=== PATIENT | female | born 1985 ===

== ENCOUNTER 2018-07-21 09:46 | Emergency (ER) | payer OTHER ==
[2018-07-21 10:04] VITALS: BMI 34.0
[2018-07-21 11:14] LABS: SQUAMOUS EPITHIAL 11 /hpf (0-5); URINE BACTERIA RARE (<OCC); URINE BILIRUBIN NEGATIVE (NEGATIVE); URINE BLOOD NEGATIVE (NEGATIVE); URINE CLARITY CLOUDY (Clear); URINE COLOR YELLOW (YELLOW); URINE GLUCOSE (UA) NEG (NEGATIVE); URINE LEUKOCYTE ESTERASE MOD Leu/uL (Negative); URINE PROTEIN 30 mg/dL (NEGATIVE); URINE UROBILINOGEN 0.2-1.0 mg/dL (0.2-1.0)
--- NOTE | 2018-07-21 11:25 | ED PDOC ---
HPI: General Adult Time Seen by Provider: 07/21/18 10:08 Chief Complaint (Nursing): GI Problem Chief Complaint (Provider): GI Problem History Per: Patient History/Exam Limitations: no limitations Onset/Duration Of Symptoms: Days Current Symptoms Are (Timing): Still Present Additional Complaint(s): 32 year old female with no past medical history who is presenting to the ED for evaluation of hyperemesis worsening over the past week. Patient is about 12 weeks by date with a LNMP of 04/24/18. She states that she had a positive home test weeks ago but has not followed up yet with wastewater analyst lab analyst. Pt. reports over past coupld weeks she has had persistent nausea and vomiting. Pt. reports multiple episodes of nonbloody nonbilious vomiting which has been more freqent this past week and now not tolerating po. Patient denies any vaginal bleeding or abdominal pain. Of note, patient has not insurance and thus has not seen an OBGYN; she will f/u with clinic. She is . PMD: none provided Past Medical History Reviewed: Historical Data, Nursing Documentation, Vital Signs Vital Signs: Last Vital Signs Temp 98.1 F 07/21/18 10:03 Pulse 71 07/21/18 10:03 Resp 20 07/21/18 10:03 BP 127/70 07/21/18 10:03 Pulse Ox 99 07/21/18 10:03 - Medical History PMH: No Chronic Diseases Denies: Chronic Kidney Disease - Surgical History Surgical History: No Surg Hx - Family History Family History: States: Unknown Family Hx - Social History Current smoker - smoking cessation education provided: No Alcohol: None Drugs: Denies - Home Medications Home Medications: Ambulatory Orders Medication Instructions Recorded Ondansetron ODT [Zofran ODT] 8 mg PO BID PRN #10 odt 07/21/18 - Allergies Allergies/Adverse Reactions: Allergies Allergy/AdvReac Type Severity Reaction Status Date / Time No Known Allergies Allergy Verified 07/21/18 10:21 Review of Systems ROS Statement: Except As Marked, All Systems Reviewed And Found Negative Gastrointestinal: Positive for: Nausea, Vomiting. Negative for: Abdominal Pain Genitourinary Female: Negative for: Vaginal Bleeding Physical Exam - Reviewed Nursing Documentation Reviewed: Yes Vital Signs Reviewed: Yes - Physical Exam Appears: Positive for: Non-toxic, No Acute Distress (but mildly dehydrated appearing ) Head Exam: Positive for: ATRAUMATIC, NORMAL INSPECTION, NORMOCEPHALIC Skin: Positive for: Normal Color, Warm, DRY Eye Exam: Positive for: EOMI, Normal appearance, PERRL ENT: Positive for: Normal ENT Inspection Neck: Positive for: Normal, Painless ROM Cardiovascular/Chest: Positive for: Regular Rate, Rhythm. Negative for: Murmur Respiratory: Positive for: Normal Breath Sounds. Negative for: Respiratory Distress Gastrointestinal/Abdominal: Positive for: Normal Exam, Soft. Negative for: Tenderness Back: Positive for: Normal Inspection Extremity: Positive for: Normal ROM. Negative for: Deformity, Swelling Neurologic/Psych: Positive for: Alert, Oriented. Negative for: Motor/Sensory Deficits - Laboratory Results Result Diagrams: 07/21/18 12:02 07/21/18 12:02 Lab Results: Urine Color Yellow (YELLOW) 07/21/18 11:00 Urine Clarity Cloudy (Clear) 07/21/18 11:00 Urine pH 5.0 (5.0-8.0) 07/21/18 11:00 Ur Specific Hunt 1.027 (1.003-1.030) 07/21/18 11:00 Urine Protein 30 mg/dL (NEGATIVE) 07/21/18 11:00 Urine Glucose (UA) Neg mg/dL (NEGATIVE) 07/21/18 11:00 Urine Ketones Negative mg/dL (NEGATIVE) 07/21/18 11:00 Urine Blood Negative (NEGATIVE) 07/21/18 11:00 Urine Nitrate Negative (NEGATIVE) 07/21/18 11:00 Urine Bilirubin Negative (NEGATIVE) 07/21/18 11:00 Urine Urobilinogen 0.2-1.0 mg/dL (0.2-1.0) 07/21/18 11:00 Ur Leukocyte Esterase Mod Amador/uL (Negative) 07/21/18 11:00 Urine RBC (Auto) 2 /hpf (0-3) 07/21/18 11:00 Urine Microscopic WBC 1 /hpf (0-5) 07/21/18 11:00 Ur Squamous Epith Cells 11 /hpf (0-5) H 07/21/18 11:00 Urine Bacteria Rare (<OCC) 07/21/18 11:00 - ECG O2 Sat by Pulse Oximetry: 99 (RA) Pulse Ox Interpretation: Normal Medical Decision Making Medical Decision Making: Time: 11:07 Plan: --Blood Type and Screen --Beta-HCG, Quantitiative --CMP --CBC --IV Fluids --Pepcid 20 mg IVP --Zofran 4 mg IVP --Urinalysis On reassessment, pt. feeling much better, no further n/v. Pt. is tolerating po. Serial abd. exams, abd. remains soft with no tenderness. Stressed importance of close wastewater analyst lab analyst follow up. Rx zofran given. Pt. comfortable with plan. Scribe Attestation: Documented by Ailyn Turner, acting as a scribe for Drea Perez PA-C. Provider Scribe Attestation: All medical record entries made by the Scribe were at my direction and personally dictated by me. I have reviewed the chart and agree that the record accurately reflects my personal performance of the history, physical exam, medical decision making, and the department course for this patient. I have also personally directed, reviewed, and agree with the discharge instructions and disposition Disposition - Clinical Impression Clinical Impression: Hyperemesis arising during - Patient ED Disposition Is Patient to be Admitted: No Counseled Patient/Family Regarding: Studies Performed, Diagnosis, Need For Followup, Rx Given - [facility]position [facility] Disposition: Routine/Home Disposition Time: 14:05 Condition: IMPROVED Prescriptions: Ondansetron ODT [Zofran ODT] 8 mg PO BID PRN #10 odt PRN Reason: Nausea/Vomiting Instructions: Nausea and Vomiting of (DC) Forms: [facility] ([place]) (German), [facility] ([place]otho) Print Language: IRISH
[2018-07-21 12:16] LABS: BASO % 0.4 % (0.0-2.0); EOS # 0.1 K/uL (0.0-0.7); EOS % 0.6 % (0.0-4.0); HEMOGLOBIN 12.4 g/dL (12.0-16.0); LYMPH # 1.8 K/uL (1.0-4.3); LYMPH % 18.7 % (20.0-40.0); MEAN CELL VOLUME 80.5 fl (81.0-99.0); MEAN CORPUSCULAR HEMOGLOBIN 25.9 pg (27.0-31.0); MEAN CORPUSCULAR HGB CONC 32.2 g/dL (33.0-37.0); MEAN PLATELET VOLUME 10.8 fl (7.2-11.7); MONO # 0.5 K/uL (0.0-0.8); MONO % 5.4 % (0.0-10.0); NEUT # 7.3 K/uL (1.8-7.0); NEUT % 74.9 % (50.0-75.0); NRBC % 0.2 % (0.0-0.0); RBC 4.78 Mil/uL (3.80-5.20); RED CELL DISTRIBUTION WIDTH 13.4 % (11.5-14.5); WHITE BLOOD COUNT 9.7 K/uL (4.8-10.8)
[2018-07-21 12:26] LABS: ALB/GLOB RATIO 1.3 (1.0-2.1); ALBUMIN 4.3 g/dL (3.5-5.0); ALT/SGPT 21 U/L (9-52); AST/SGOT 20 U/L (14-36); BLOOD UREA NITROGEN 12 mg/dl (7-17); CALCIUM 9.6 mg/dL (8.4-10.2); GFR NON-AFRICAN AMERICAN > 60
[2018-07-21] MEDS: Sodium Chloride 0.9% 1,000 ML IV SCH ×4 (12:32→14:43)
[2018-07-21 14:03] VITALS: O2SAT 99
[2018-07-21 14:36] VITALS: BP 112/68; PULSE 75; RESP 18; TEMP 98.6
== END 2018-07-21 14:42 | disposition home or self-care (01) ==
LOC: H.ER 09:46
DX: O21.1 Hyperemesis gravidarum with metabolic disturbance (principal)
CPT/HCPCS: 80053; 81003; 84702; 85025; 86850; 86900; 96361; 96374; 96375; 99284; J2405; J7030

== ENCOUNTER 2018-09-10 14:54 | Emergency (ER) | payer SELFPAY ==
[2018-09-10 15:10] VITALS: O2SAT 97
[2018-09-10 15:11] VITALS: BMI 36.4
--- NOTE | 2018-09-10 16:14 | ED PDOC ---
HPI: Female Pain Time Seen by Provider: 09/10/18 15:42 Chief Complaint (Nursing): Female Genitourinary Chief Complaint (Provider): Female Genitourinary History Per: Patient, Medical Facilities Section Director ([id number]) History/Exam Limitations: no limitations Onset/Duration Of Symptoms: Days Current Symptoms Are (Timing): Still Present Associated Symptoms: Back Pain. denies: Fever, Nausea, Vomiting, Diarrhea, Urinary Symptoms Additional Complaint(s): 32 year old female who is 19 weeks is presenting to the ED for evaluation of right sided hip pain radiating to the back ongoing for the past month and a half. Patient states that over the past week the baby has been moving less. Of note, she states that she has not had any care and denies any vaginal bleeding, fevers, nausea, vomiting, diarrhea, dysuria, or hematuria. PMD: none provided Abnormal Vaginal Bleeding: No Past Medical History Reviewed: Historical Data, Nursing Documentation, Vital Signs Vital Signs: Last Vital Signs Temp 98.5 F 09/10/18 15:30 Pulse 75 09/10/18 15:30 Resp 16 09/10/18 15:30 BP 105/65 09/10/18 15:30 Pulse Ox 97 09/10/18 15:10 - Medical History PMH: No Chronic Diseases Denies: Chronic Kidney Disease - Surgical History Surgical History: No Surg Hx - Family History Family History: States: Unknown Family Hx - Social History Current smoker - smoking cessation education provided: No Alcohol: None Drugs: Denies - Immunization History Hx Tetanus Toxoid Vaccination: No Hx Influenza Vaccination: No Hx Pneumococcal Vaccination: No - Home Medications Home Medications: Ambulatory Orders Medication Instructions Recorded Ondansetron ODT [Zofran ODT] 8 mg PO BID PRN #10 odt 07/21/18 - Allergies Allergies/Adverse Reactions: Allergies Allergy/AdvReac Type Severity Reaction Status Date / Time No Known Allergies Allergy Verified 09/10/18 15:12 Review of Systems ROS Statement: Except As Marked, All Systems Reviewed And Found Negative Constitutional: Negative for: Fever Gastrointestinal: Negative for: Nausea, Vomiting, Diarrhea Genitourinary Female: Negative for: Dysuria, Hematuria Musculoskeletal: Positive for: Back Pain Physical Exam - Reviewed Nursing Documentation Reviewed: Yes Vital Signs Reviewed: Yes - Physical Exam Appears: Positive for: Non-toxic, No Acute Distress Head Exam: Positive for: ATRAUMATIC, NORMAL INSPECTION, NORMOCEPHALIC Skin: Positive for: Normal Color, Warm, DRY Eye Exam: Positive for: EOMI, Normal appearance, PERRL ENT: Positive for: Normal ENT Inspection Cardiovascular/Chest: Positive for: Regular Rate, Rhythm. Negative for: Murmur Respiratory: Positive for: Normal Breath Sounds. Negative for: Respiratory Distress Gastrointestinal/Abdominal: Positive for: Normal Exam, Soft. Negative for: Tenderness Back: Positive for: Normal Inspection. Negative for: L CVA Tenderness, R CVA Tenderness, Vertebral Tenderness Extremity: Positive for: Normal ROM. Negative for: Deformity, Swelling Neurological/Psych: Positive for: Awake, Alert, Oriented. Negative for: Motor/Sensory Deficits - ECG O2 Sat by Pulse Oximetry: 97 (RA) Pulse Ox Interpretation: Normal Medical Decision Making Medical Decision Making: Time: 16:[address] Mcnair: they would like patient to come upstairs for OB ED observation. Scribe Attestation: Documented by Ailyn Turner, acting as a scribe for Rogerio Ruiz PA-C. Provider Scribe Attestation: All medical record entries made by the Scribe were at my direction and personally dictated by me. I have reviewed the chart and agree that the record accurately reflects my personal performance of the history, physical exam, medical decision making, and the department course for this patient. I have also personally directed, reviewed, and agree with the discharge instructions and disposition. Disposition - Clinical Impression Clinical Impression: Abdominal pain during - Patient ED Disposition Is Patient to be Admitted: No - Disposition Disposition: Routine/Home Disposition Time: 17:40 Condition: STABLE Forms: [employer] ([place]uan)
[2018-09-10 16:59] LABS: SQUAMOUS EPITHIAL 9 /hpf (0-5); URINE BACTERIA RARE (<OCC); URINE BILIRUBIN NEGATIVE (NEGATIVE); URINE BLOOD NEGATIVE (NEGATIVE); URINE CLARITY CLOUDY (Clear); URINE COLOR YELLOW (YELLOW); URINE GLUCOSE (UA) >=500 mg/dL (NEGATIVE); URINE LEUKOCYTE ESTERASE MOD Leu/uL (Negative); URINE PROTEIN NEGATIVE (NEGATIVE)
--- NOTE | 2018-09-10 18:10 | OBDCSUM ---
Datetime: 09/10/2018 17:35 Discharged to, Provider: Home Follow up at, Provider: [facility] Disch Instr Activity: Normal activity Disch Instr Diet: Regular Discharge Time: 09/10/2018 17:37 Follow up in weeks, Provider: (Pt stated the clinic personnel will schedule her for her next a Disch Referrals: None Disch Activity Restrictions: No sexual activity; Nothing in vagina - [place], tampons, douche Discharge Diagnosis Prov Other: UTI symptoms
--- NOTE | 2018-09-10 18:10 | OBHP ---
Datetime: 09/10/2018 16:59 IP Adm Impression: , intrauterine IP Chief Complaint Other: RLQ pain IP Admit Plan: Observation/Evaluation; Discharge home Admit Comment, IP Provider: Patient is a @ 19.1 wks, presented to clinic today for her first appointment and was sent to [facility] when informed provider she has had on/off RLQ pain for one month. P atient denies VB, leaking, on/off movement, no contractions. On exam pain not present on deep p alpation, benign abdomen, no rebound, no gaurding. patient reports she was not having the pain at thi s point, pain many times comes at night, sometimes she feels numbing in the are of the skin. Patient denies fever, vomiting, diarrhea, constipation. Pt reports some discomfort she urinates - UA sent to lab and showed mod bacteria with some squamous cells. Patient expresses she is having symptoms, so wi ll treat prophylactically - Macrobid 100mg PO BID x 7 days given to patient. Symptoms for worsening i nfection/pyelonephritis reviewed with patient, as well as labor symptoms. Patient discharged, to foll ow up in clinc Pelvic Type - PN: Adequate Extremities - PN: Normal Abdomen - PN: Normal Back - PN: Normal Breast - PN: Normal Lungs - PN: Normal Heart - PN: Normal Thyroid - PN: Normal Neurologic - PN: Normal HEENT - PN: Normal General - PN: Normal FHR - Baseline A Provider: 140 Contraction Comments Provider: none Vital Signs Provider: Reviewed; Within Normal Limits Genitourinary Exam: Normal DTRs - PN: Normal
[2018-09-10 22:13] VITALS: BP 99/60; PULSE 78; RESP 18; TEMP 97.8
== END 2018-09-10 17:45 | disposition home or self-care (01) ==
LOC: H.EROB2 14:54 → H.ER 14:54 → H.EROB 16:27 → H.EROB2 17:45
DX: O26.92 Pregnancy related conditions, unspecified, second trimester (principal); R10.2 Pelvic and perineal pain; Z3A.19 19 weeks gestation of pregnancy